=== PATIENT | female | born 1985 | race Two or more races ===

== ENCOUNTER 2024-03-27 07:18 | Inpatient (IN) | payer SELFPAY ==
[~2024-03-27] VITALS: Ht 175.3 cm; Wt 169.6 kg
[~2024-03-27 07:18] MED LIST: LEVO750T68 MT
[2024-03-27] MEDS: MORPHINE SULFATE 4 MG/ML INJ (FOR IV/IM USE) IV STA ×2 (08:23→11:46)
[2024-03-27] MEDS: ONDANSETRON HCL 4MG/2ML INJ IV STA (08:24)
[2024-03-27 09:28] LABS: CHLORIDE 106 mEq/L (98-107); INR 1.1; POTASSIUM 3.6 mEq/L (3.5-5.1); PROTHROMBIN TIME 12.2 sec (9.6-11.0); SODIUM 137 mEq/L (136-145)
[2024-03-27 09:29] LABS: BASOPHILS % 0.2 % (0.0-2.0); CARBON DIOXIDE 23 mEq/L (21-32); DIFFERENTIAL COMMENT 0; EOSINOPHILS % 0.2 % (0.0-5.0); HEMATOCRIT. 45.1 % (36.0-48.0); HEMOGLOBIN. 14.2 g/dL (12.0-16.0); LYMPHOCYTES % 7.9 % (20.0-50.0); MEAN CORPUSCULAR HEMOGLOBIN 24.9 pg (28.0-32.0); MEAN CORPUSCULAR HGB CONC 31.4 g/dL (31.0-37.0); MEAN CORPUSCULAR VOLUME 79.2 fL (81.0-99.0); MEAN PLATELET VOLUME 6.7 fl (7.4-10.4); MONOCYTES % 3.3 % (2.0-8.0); NEUTROPHILS % 88.4 % (40.0-76.0); PLATELET 402 x1000/uL (130-400); RED CELL DISTRIBUTION WIDTH 17.5 % (11.6-14.6); WHITE BLOOD COUNT 19.7 x1000/uL (4.5-11.0)
[2024-03-27 09:30] LABS: CALCIUM 9.5 mg/dL (8.7-10.4)
[2024-03-27 09:34] LABS: CREATININE 0.8 mg/dL (0.6-1.0); GLUCOSE 116 mg/dL (70-105)
[2024-03-27 09:35] LABS: UREA NITROGEN BLOOD 8 mg/dL (9-23)
[2024-03-27 09:36] LABS: ALANINE AMINOTRANSFERASE 10 IU/L (10-49); ALBUMIN 4.4 g/dL (3.2-4.8); ASPARTATE AMINOTRANSFERASE 12 IU/L (<34)
[2024-03-27 09:37] LABS: BILIRUBIN DIRECT 0.7 mg/dL (<=3.0); BILIRUBIN TOTAL 1.4 mg/dL (0.1-1.0)
[2024-03-27 09:40] LABS: HCG SCREEN NEGATIVE
[2024-03-27] MEDS: PIPERACILLIN/TAZO 3.375G/50ML 50 ML IV STA (13:41)
[2024-03-27] MEDS ORDERED: NITROGLYCERIN 0.4MG TABLET SL SL PRN (14:15)
[2024-03-27] MEDS ORDERED: ACETAMINOPHEN 650MG SUPP PR PRN ×2 (14:15)
[2024-03-27] MEDS: DEXT 5%/LACTATED RINGERS 1,000 ML IV SCH (14:31)
[2024-03-27] MEDS: PANTOPRAZOLE SODIUM 40 MG/VIAL IV SCH (14:37)
[2024-03-27 15:11] LABS: T4 FREE 1.33 ng/dL (0.89-1.76)
[2024-03-27 15:12] LABS: THYROID STIMULATING HORMONE 0.49 uIU/mL (0.55-4.78)
[2024-03-27 16:00] VITALS: BP 115/73; PULSE 95; RESP 19; TEMP 37.11408; O2SAT 93
[2024-03-27 17:00] VITALS: BP 115/73; PULSE 95; RESP 19; TEMP 37.1408
[2024-03-27 18:00] VITALS: BP 115/73; PULSE 95; RESP 19; TEMP 37.11408; O2SAT 93
[2024-03-27 20:00] VITALS: BP_SYST 135; BP_SYST 142; BP_DIAS 88; PULSE 97; RESP 18; TEMP 36.72516; O2SAT 95
[2024-03-27] MEDS: KETOROLAC 15MG/ML VIAL IV PRN (20:42)
[2024-03-28] MEDS: ONDANSETRON HCL 4MG/2ML INJ IV PRN (00:57)
[2024-03-28 04:00] VITALS: BP 140/87; PULSE 85; RESP 18; TEMP 36.61404; O2SAT 95
[2024-03-28 07:38] LABS: CHLORIDE 106 mEq/L (98-107); POTASSIUM 3.7 mEq/L (3.5-5.1); SODIUM 140 mEq/L (136-145)
[2024-03-28 07:40] LABS: CALCIUM 9.5 mg/dL (8.7-10.4); CARBON DIOXIDE 25 mEq/L (21-32)
[2024-03-28 07:45] LABS: CREATININE 0.8 mg/dL (0.6-1.0); GLUCOSE 113 mg/dL (70-105)
[2024-03-28 07:46] LABS: UREA NITROGEN BLOOD 14 mg/dL (9-23)
[2024-03-28 07:47] LABS: ALANINE AMINOTRANSFERASE 7 IU/L (10-49); ALBUMIN 4.4 g/dL (3.2-4.8); ASPARTATE AMINOTRANSFERASE 9 IU/L (<34); PHOSPHORUS 3.8 mg/dL (2.5-4.9)
[2024-03-28 07:48] LABS: BILIRUBIN TOTAL 1.1 mg/dL (0.1-1.0)
[2024-03-28 07:51] LABS: BASOPHILS % 0.3 % (0.0-2.0); DIFFERENTIAL COMMENT 0; EOSINOPHILS % 0.6 % (0.0-5.0); HEMOGLOBIN. 14.2 g/dL (12.0-16.0); LYMPHOCYTES % 9.6 % (20.0-50.0); MEAN CORPUSCULAR HGB CONC 31.5 g/dL (31.0-37.0); MEAN CORPUSCULAR VOLUME 79.4 fL (81.0-99.0); MEAN PLATELET VOLUME 6.9 fl (7.4-10.4); MONOCYTES % 3.8 % (2.0-8.0); NEUTROPHILS % 85.7 % (40.0-76.0); PLATELET 429 x1000/uL (130-400); RED BLOOD CELL COUNT 5.67 mill/uL (4.2-5.4); RED CELL DISTRIBUTION WIDTH 17.2 % (11.6-14.6); WHITE BLOOD COUNT 19.1 x1000/uL (4.5-11.0)
[2024-03-28 08:00] VITALS: BP 131/86; PULSE 84; RESP 20; TEMP 35.22504; O2SAT 94
[2024-03-28 11:53] VITALS: PULSE 84; RESP 17; O2SAT 98
[2024-03-28] MEDS: IPRATROPIUM/ALBUTEROL 0.5-3(2.5)MG/3ML NEB NEB PRN (11:53)
[2024-03-28 12:00] VITALS: BP 136/70; PULSE 83; RESP 19; TEMP 35.8362; O2SAT 93
[2024-03-28 16:00] VITALS: BP 139/80; PULSE 82; RESP 19; TEMP 35.89176; O2SAT 95
[2024-03-29] MEDS: LORAZEPAM 2MG/ML INJ IV PRN (01:56)
[2024-03-29 04:00] VITALS: BP 142/103; PULSE 85; RESP 20; TEMP 36.50292; O2SAT 95
[2024-03-29] MEDS: ENOXAPARIN 30MG/0.3ML SYR SUBCUT SCH (06:39)
[2024-03-29 08:00] VITALS: BP 172/98; PULSE 84; RESP 20; TEMP 36.72516; O2SAT 93
[2024-03-29] MEDS ORDERED: LORAZEPAM 2MG/ML INJ IV PRN (09:45)
[2024-03-29 11:17] VITALS: BP 142/103; PULSE 85; RESP 20
== END 2024-03-29 11:38 | disposition left against medical advice (07) | DRG 247 ==
LOC: ER 07:31 → 6EST 13:16
PROVIDERS: ADMIT Internal Medicine; ATTEND Internal Medicine
DX: K56.609 Unspecified intestinal obstruction, unspecified as to partial versus complete obstruction (principal); Z68.43 Body mass index [BMI] 50.0-59.9, adult; D72.829 Elevated white blood cell count, unspecified; K43.9 Ventral hernia without obstruction or gangrene; E66.01 Morbid (severe) obesity due to excess calories; Z53.29 Procedure and treatment not carried out because of patient's decision for other reasons
CPT/HCPCS: 36415; 74018; 74177; 80048; 80053; 80076; 83036; 83735; 84100; 84439; 84443; 84703; 85025; 93970; 94640; 99285; C1893